=== PATIENT | female | born 1995 | race Caucasian/White ===

== ENCOUNTER → 2025-05-13 22:00 | Outpatient (REF) | payer BC, SELFPAY | LOC: DHSLP 22:00 | PROVIDERS: ATTENDING PHYSICIAN Nurse Practitioner Adult Health | DX: G47.19 Other hypersomnia (principal); R06.83 Snoring; E66.09 Other obesity due to excess calories; Z68.33 Body mass index [BMI] 33.0-33.9, adult; R53.82 Chronic fatigue, unspecified | CPT/HCPCS: 95806 ==